=== PATIENT | female | born 1955 | race Caucasian/White ===

== ENCOUNTER 2020-07-15 18:16 | Emergency (ER) | payer MEDICARE, OTHER ==
[~2020-07-15] VITALS: Ht 162.6 cm; Wt 72.7 kg
[2020-07-15 18:26] VITALS: TEMP 97.9
[2020-07-15 19:14] VITALS: BP 107/66; PULSE 79
== END 2020-07-15 19:20 | disposition home or self-care (01) ==
LOC: COL.ER 18:16
DX: M54.16 Radiculopathy, lumbar region (principal); Z87.891 Personal history of nicotine dependence

== ENCOUNTER → 2020-07-15 | Emergency (ER) ==
[~2020-07-15] MED LIST: B-12 500 MCG PO; CEFTIN500 MG PO; CIPRO 500MG TA500 MG PO; COLACE 100100 MG/CAP PO; CYMBALTA 60MG60 MG PO; FLAGYL500 MG PO; FOLIC ACID 11 MG/TA1 PO; LYRICA 150MG C150 MG PO; MEDROL 4MG DOSPA4 MG PO; NORCO 325 MG-51 TAB PO; OXY IR5 MG PO; PERCOCET 325 MG1 TA2 PO; PYRIDIUM 100MG100 MG PO; ROXICODONE 55 MG/TAB PO; TIROSINT50 MC1 PO; TYLENOL 8 HR PO; VITAMIN D 400400 IU PO
== END ==
LOC: COL.ER 18:11
DX: R69 Illness, unspecified (principal)

== ENCOUNTER 2020-07-20 18:21 | Emergency (ER) | payer OTHER ==
[~2020-07-20] VITALS: Ht 162.6 cm; Wt 72.7 kg
[2020-07-20 18:31] VITALS: TEMP 98.7
[2020-07-20] MEDS ORDERED: MEDROL 4MG DOSPA4 MG PO ×2 (19:13)
[2020-07-20 19:42] VITALS: BP 138/84; PULSE 72
== END 2020-07-20 19:50 | disposition home or self-care (01) ==
LOC: COL.ER 18:21
DX: M54.16 Radiculopathy, lumbar region (principal); Z87.891 Personal history of nicotine dependence
CPT/HCPCS: J1885

== ENCOUNTER 2020-07-28 17:36 | Inpatient (IN) | payer MEDICARE, OTHER ==
[~2020-07-28] VITALS: Ht 162.6 cm; Wt 74.6 kg
[~2020-07-28 17:36] MED LIST changes: -B-12 500 MCG PO; -CEFTIN500 MG PO; -CIPRO 500MG TA500 MG PO; -COLACE 100100 MG/CAP PO; -CYMBALTA 60MG60 MG PO; -FLAGYL500 MG PO; -FOLIC ACID 11 MG/TA1 PO; -LYRICA 150MG C150 MG PO; -NORCO 325 MG-51 TAB PO; -OXY IR5 MG PO; -PERCOCET 325 MG1 TA2 PO; -PYRIDIUM 100MG100 MG PO; -ROXICODONE 55 MG/TAB PO; -TIROSINT50 MC1 PO; -TYLENOL 8 HR PO; -VITAMIN D 400400 IU PO
[2020-07-28 18:28] LABS: BASO # 0.1 (0.0-0.2); BASO % 0.9 % (0.0-2.0); EOS # 0.1 (0.0-0.7); EOS % 1.2 % (0-4.0); GRAN # 5.1 (1.4-6.5); GRAN % 57.4 % (42.2-75.2); HEMATOCRIT 47.1 % (37.0-47.0); HEMOGLOBIN 15.3 g/dl (12.5-16.0); LYMPH # 2.9 (1.2-3.4); LYMPH % 31.8 % (20.0-51.0); MEAN CELL VOLUME 94 fl (80.0-100.0); MEAN CORPUSCULAR HEMOGLOBIN 30 pg (27.0-31.0); MEAN CORPUSCULAR HGB CONC 33 g/dl (33.0-37.0); MEAN PLATELET VOLUME 10.1 fl (7.4-10.4); MONO # 0.8 (0.1-0.6); MONO % 8.6 % (1.7-9.3); PLATELET COUNT 353 K/mm3 (130-400); RED BLOOD COUNT 5.03 M/mm3 (4.10-5.30); REDCELL DISTRIBUTION WIDTH-CV 14.7 % (11.5-14.5)
[2020-07-28 19:15] LABS: ALBUMIN 4.3 gm/dL (3.5-5.0); BILIRUBIN,TOTAL 0.5 mg/dL (0.0-1.0); CREATININE, serum 0.91 (0.52-1.25); POTASSIUM 4.1 mmol/L (3.4-5.0); TOTAL PROTEIN 7.1 gm/dL (6.4-8.2)
[2020-07-28 19:28] LABS: MUCOUS Present /lpf; PH 6 (5-8); SQUAMOUS EPITHELIAL 20-50 /hpf; URINE APPEARANCE Turbid; URINE BACTERIA Rare /hpf; URINE BILIRUBIN Negative (NEGATIVE); URINE BLOOD 1+ (NEGATIVE); URINE COLOR Amber; URINE GLUCOSE Negative (NEGATIVE); URINE KETONE Negative (NEGATIVE); URINE LEUKOCYTE ESTERASE 3+ (NEGATIVE); URINE NITRATE Negative (NEGATIVE); URINE PROTEIN(semi-quant) 2+ (NEGATIVE); URINE UROBILINOGEN Negative (NEGATIVE); URINE WBC >50 /hpf
[2020-07-28 19:33] LABS: COLLECTION METHOD CLEAN CATCH
[2020-07-28] MEDS ORDERED: OXY IR5 MG PO (22:43)
[2020-07-28 22:49] VITALS: BP 127/61; PULSE 88; TEMP 97.5
--- NOTE | 2020-07-29 00:20 | NUR ---
Admitted to medical floor from ER- DX UTI, weakness,, was just discharged from [facility],, still having the severe weakness and is unable to walk-- neuros are intact, strong hand grasps etc, but has decreased sensation she states from her neck down, also has numbness/tingling hands/feet, very awkward in trying to hold a cup, when trying to stand , feet numb and cant move legs- but able to lift legs , arms in bed and push against resistance. Alert/oriented, very pleasant, requesting applesauce /water-- states having pain 8/10 to hips/legs-- was given roxicodone as ordered.
[2020-07-29 03:59] VITALS: BP 121/56; PULSE 70; TEMP 97.7
--- NOTE | 2020-07-29 06:00 | NUR ---
Was able to void a large amount urine per bedpan ,, VSS, was given roxicodone x2 during the night for hip and leg pain- Awake, talking on the phone
--- NOTE | 2020-07-29 08:30 | NUR ---
Shift assessment complete. Reports tingling/numbness from neck down. Noted to have difficulty with fine motor movements in hands. Spills drinks when attempting to put cup to mouth and is unable to place pills in mouth w/o assistance. A&Ox4. PERRLA, muscle strength weak but equal bilaterally, follows commands. Heart RRR. Lungs CTA. Denies other needs at this time.
[2020-07-29 09:13] VITALS: BP 125/81; PULSE 72; TEMP 97.7
[2020-07-29 14:17] VITALS: BP 145/64; PULSE 78; TEMP 97.8
--- NOTE | 2020-07-29 14:22 | NUR ---
Plan to return home in [place] with her and son Andrew . PCP Dr. Pham. Patient uses RX: [facility], Patient indicated to that she is non-mobile and uses wheelchair. Patient reports that she started with [facility]. Patient reports that her picks her up and moves. Patient indicated that she does not ambulate. Patient denies wanting use any retirement services. Patient reports that she would do homehealth care. Will continue to follow care.
[2020-07-29 16:48] VITALS: BP 106/47; PULSE 90; TEMP 98.5
--- NOTE | 2020-07-29 17:45 | NUR ---
Continues to have generalized weakness and intermittent tingling pain from neck down. Pain relieved by roxicodone, administered once this shift. Pt resting w/eyes closed for most of day w/o complaint.
--- NOTE | 2020-07-29 20:30 | NUR ---
Initial shift assessment done- states pain level a 4/10 at this time,,just had a pain med at shift change. VSS. Pt talkative, neuros intact, patient states her numbness/tingling is the same from the neck down. VSS. Dr. Dutton here to see patient tonight.
[2020-07-29 21:52] VITALS: BP 117/74; PULSE 83; TEMP 98.6
[2020-07-30] VITALS (7 sets, daily range): BP systolic 104–131; BP diastolic 52–87; PULSE 70–98; TEMP 97.2–98.4
--- NOTE | 2020-07-30 06:18 | NUR ---
Did not sleep much during the night-- states she still feels very numb 'all over",,using the bedpan during the night, voiding good amounts of urine. Getting her Roxicodone every 4 hours for overall pain.
--- NOTE | 2020-07-30 07:30 | NUR ---
Shift assessment complete. Reports numbness and tingling from neck down w/ pain at 4/10. Feels that motor control has worsened overnight. Unable to grasp items w/o dropping them. A&Ox4. Heart RRR. Lungs CTA. PERRLA, hand regional economic liaison/muscle strength weak but equal bilaterally. Right AC INT w/o s/s complication. Denies other needs. Continuing to monitor.
[2020-07-30 09:22] LABS: BASO # 0.1 (0.0-0.2); BASO % 1.1 % (0.0-2.0); EOS # 0.1 (0.0-0.7); EOS % 2.3 % (0-4.0); GRAN # 3.6 (1.4-6.5); GRAN % 58.4 % (42.2-75.2); HEMATOCRIT 40.9 % (37.0-47.0); HEMOGLOBIN 13.4 g/dl (12.5-16.0); LYMPH # 1.8 (1.2-3.4); LYMPH % 28.7 % (20.0-51.0); MEAN CELL VOLUME 92 fl (80.0-100.0); MEAN CORPUSCULAR HEMOGLOBIN 30 pg (27.0-31.0); MEAN CORPUSCULAR HGB CONC 33 g/dl (33.0-37.0); MEAN PLATELET VOLUME 9.5 fl (7.4-10.4); MONO # 0.6 (0.1-0.6); PLATELET COUNT 298 K/mm3 (130-400); RED BLOOD COUNT 4.44 M/mm3 (4.10-5.30); REDCELL DISTRIBUTION WIDTH-CV 14.4 % (11.5-14.5)
[2020-07-30 09:32] LABS: ALBUMIN 4.1 gm/dL (3.5-5.0); BILIRUBIN,TOTAL 0.5 mg/dL (0.0-1.0); CALCIUM 9.8 mg/dL (8.4-10.2); CREATININE, serum 0.9 (0.52-1.25); TOTAL PROTEIN 6.8 gm/dL (6.4-8.2)
--- NOTE | 2020-07-30 17:42 | NUR ---
Pt x2 assist to BSC at this time for small soft BM. Encouraged pt to perform ADLs as much as possible today, did fairly well with this. Roxicodone given x3 this shift w/adequate relief per pt report. VSS.
--- NOTE | 2020-07-30 18:37 | NUR ---
Pt reported pressure in pelvic region. Had a BM and urinated small amount and still felt pressure. Bladder scan done and found 842 ml. EDISON De La Cruz notified and ordered Olson. 18 Fr olson inserted with 675 ml output immediately. Urine continuing to drain slowly.
--- NOTE | 2020-07-30 20:00 | NUR ---
Assessment complete at this time. Patient is alert and oriented with no complaints of pain. She lifts all extremities and pushes against resisitance; Her hand account engineer are equal and strong but she does have some difficulty grasping her cup. Lung sounds are clear, HR normal/regular. Call light in reach, will continue to monitor.
[2020-07-31 04:07] VITALS: BP 116/59; PULSE 89; TEMP 97.6
[2020-07-31 06:52] LABS: BASO # 0.1 (0.0-0.2); BASO % 0.8 % (0.0-2.0); EOS # 0.2 (0.0-0.7); EOS % 2.7 % (0-4.0); GRAN # 3.3 (1.4-6.5); GRAN % 56.1 % (42.2-75.2); HEMATOCRIT 39.9 % (37.0-47.0); HEMOGLOBIN 13.3 g/dl (12.5-16.0); LYMPH # 1.8 (1.2-3.4); LYMPH % 29.9 % (20.0-51.0); MEAN CELL VOLUME 92 fl (80.0-100.0); MEAN CORPUSCULAR HEMOGLOBIN 31 pg (27.0-31.0); MEAN CORPUSCULAR HGB CONC 33 g/dl (33.0-37.0); MEAN PLATELET VOLUME 10.4 fl (7.4-10.4); MONO # 0.6 (0.1-0.6); MONO % 10.2 % (1.7-9.3); PLATELET COUNT 253 K/mm3 (130-400); RED BLOOD COUNT 4.34 M/mm3 (4.10-5.30); REDCELL DISTRIBUTION WIDTH-CV 14.5 % (11.5-14.5)
[2020-07-31 07:05] LABS: ALBUMIN 3.9 gm/dL (3.5-5.0); BILIRUBIN,TOTAL 0.7 mg/dL (0.0-1.0); CALCIUM 9.5 mg/dL (8.4-10.2); CREATININE, serum 0.9 (0.52-1.25); TOTAL PROTEIN 6.5 gm/dL (6.4-8.2)
[2020-07-31 08:32] VITALS: BP 116/58; PULSE 78; TEMP 97.9
[2020-07-31 11:22] VITALS: BP 121/63; PULSE 77; TEMP 97.9
--- NOTE | 2020-07-31 12:36 | NUR ---
First visit from the meter installer and remover. No needs right now.
--- NOTE | 2020-07-31 15:33 | NUR ---
PT/OT are recommending post-acute rehab/IPR. SW met with the patient to discuss their recommendation. The patient was agreeable to rehab and chose 1) [facility] 2) [facility]. SW consulted I[facility] Director. SW contacted and faxed a referral to Karla at [facility]. Awaiting screens.
[2020-07-31 16:50] VITALS: BP 130/80; PULSE 81; TEMP 97.6
--- NOTE | 2020-07-31 19:00 | NUR ---
PATIENT HAD UNEVENTFUL SHIFT. PATIENT GIVEN PRN PAIN MEDICATION AND REPOSITIONED WITH PILLOWS NEEDED THROUGHOUT THE DAY. BEDSIDE REPORT GIVEN TO NIGHT NURSE. PATIENT DENIES NEEDS AT THIS TIME.
--- NOTE | 2020-07-31 20:00 | NUR ---
Report received, assumed care for cnc machinist 2nd shift. Assessment complete. VS stable. A&Ox3. Denies pain/nausea/shortness of breath. Hand junk removal specialist equal bilat. Foot presses equal bilat. Able to lift both upper and lower extremities but having difficulty with coordination of hands. Romero cath with clear yellow urine. Plan of care discussed for this shift to inculde HS meds/pain meds/antibiotics/calling for questions/concerns. Verbalizes understanding/denies needs. Call light in reach. Will monitor.
[2020-07-31 20:45] VITALS: BP 116/55; PULSE 64; TEMP 98.1
--- NOTE | 2020-07-31 23:45 | NUR ---
Called with c/o pain to bilat hips. Rating pain 6/10 on pain scale described as constant ache. Oxycodone given per dr order. Will monitor.
[2020-08-01 00:24] VITALS: BP 107/62; PULSE 99; TEMP 98.1
[2020-08-01 03:28] VITALS: BP 120/72; PULSE 93; TEMP 97.6
--- NOTE | 2020-08-01 04:00 | NUR ---
Called with c/o pain to hips bilat. Rating pain 6/10 on pain scale-described as constant throbbing. Oxycodone given per dr order. Will monitor.
[2020-08-01 07:19] LABS: BASO % 0.2 % (0.0-2.0); GRAN # 3.8 (1.4-6.5); GRAN % 80.5 % (42.2-75.2); HEMATOCRIT 42.3 % (37.0-47.0); HEMOGLOBIN 14.4 g/dl (12.5-16.0); LYMPH # 0.8 (1.2-3.4); LYMPH % 17.8 % (20.0-51.0); MEAN CELL VOLUME 91 fl (80.0-100.0); MEAN CORPUSCULAR HEMOGLOBIN 31 pg (27.0-31.0); MEAN CORPUSCULAR HGB CONC 34 g/dl (33.0-37.0); MEAN PLATELET VOLUME 10.4 fl (7.4-10.4); MONO # 0.1 (0.1-0.6); MONO % 1.1 % (1.7-9.3); PLATELET COUNT 326 K/mm3 (130-400); RED BLOOD COUNT 4.66 M/mm3 (4.10-5.30); REDCELL DISTRIBUTION WIDTH-CV 13.9 % (11.5-14.5)
[2020-08-01 07:26] LABS: CALCIUM 10.1 mg/dL (8.4-10.2); CREATININE, serum 0.83 (0.52-1.25); POTASSIUM 4.1 mmol/L (3.4-5.0)
--- NOTE | 2020-08-01 07:30 | NUR ---
assessment as charted. Pt. resting in bed. HR reg AP 85bpm. Pain rated 1/10 At rest. INT in upper RT arm intact/no redness. Assist patient to chair w/PT, tolrated activity well.
[2020-08-01 07:31] VITALS: BP 113/72; PULSE 104; TEMP 98.7
--- NOTE | 2020-08-01 09:03 | NUR ---
Assessment complete. Patient sitting up in recliner after working with PT. She is in good spirits at this time and was plesant on assessment. No complaints of pain or discomfort at this time. Neuro assessment was unremarkable as patients extremities are strong on assessment as well as equal hand graps. Pt took PO meds well with no issues. Will continue to monitor. Call light is in reach. Fall precautions are in place.
[2020-08-01 09:39] LABS: LYME DISEASE ANTIBODIES Negative (Negative)
[2020-08-01 11:30] VITALS: BP 103/78; PULSE 106
--- NOTE | 2020-08-01 15:51 | NUR ---
The patient was started on IV decadron today. She may be able to d/c tomorrow. SW contacted and updated the patient's , Otilio (ph#[phone]). He is agreeable to rehab at [facility] or [facility].
[2020-08-01 16:38] VITALS: BP 105/56; PULSE 84; TEMP 97.9
--- NOTE | 2020-08-01 16:41 | NUR ---
Patient has had a good shift. She spent some time in the recliner after working with PT. Minimal needs through the day. Pt reports minor headache at this time, scheduled tylenol to be provided as patietn denied the need for anything stronger stating "I dont want to be drugged up", pt agreed to tylenol. No other needs were expressed at this time. Continuing to monitor. Call light is in reach. Fall precautions are in place.
[2020-08-01 19:48] LABS: CADMIUM BLOOD <0.2 ng/mL (<5.0); MERCURY,SERUM <1 ng/mL (<10)
[2020-08-01 20:12] VITALS: BP 111/61; PULSE 86; TEMP 98.1
--- NOTE | 2020-08-01 20:30 | NUR ---
Initial shift assessment done- denies pain at this time, states headache is resolved, pt up to BSC with 2 assists- did have bowel movement,, states still has numbness, tingling from about neck down-- states it about the same-not any worse. Romero to DD with cleqr yellow urine.
[2020-08-02 00:14] VITALS: BP 127/67; PULSE 84; TEMP 97.7
[2020-08-02 04:43] VITALS: BP 131/77; PULSE 83; TEMP 97.5
--- NOTE | 2020-08-02 06:04 | NUR ---
Quiet night- did get a few hours of sleep- this morning states she feels more numbness and tingling to arms and hands, continues to do her arm and hand exercises per therapy--VSS, continues with the IV decadron as ordered.
[2020-08-02 08:53] VITALS: BP 109/57; PULSE 91; TEMP 97.7
--- NOTE | 2020-08-02 09:16 | NUR ---
Coat Checker attended clinical rounds with the team. The patient's was present. Hospitalist will attempt to transfer to for further care.
[2020-08-02 11:23] VITALS: BP 124/73; PULSE 82; TEMP 97.4
--- NOTE | 2020-08-02 14:36 | NUR ---
[facility] has declined the patient. PA to staff with Dr. Dutton regarding denial for transfer.
--- NOTE | 2020-08-02 14:54 | NUR ---
Area Manager updated Idania, [facility] Director and faxed updates to Karla at [facility].
[2020-08-02 16:48] VITALS: BP 111/71; PULSE 81; TEMP 98.1
[2020-08-02 18:58] VITALS: BP 121/71; PULSE 95; TEMP 97.7
--- NOTE | 2020-08-02 19:30 | NUR ---
Patient assessed at this time. Alert and oriented, and able to make needs known. Denies having pain and discomfort at this time. Peripheral INT to right AC flushed. Site without redness, warmth, pain and swelling. Denies having SOB and dyspnea. LS CTA. Respirations even and unlabored. HRR. Capillary refill less than 3 seconds. Non-tenting skin turgor. BSAx4. Abdomen soft and non-tender. No edema. Indwelling olson catheter in place, with yellow urine with sediment present. Continues to have weakness in BUE and BLE, as well as "numbness" all over. Resting in bed with call light within reach. High fall risk precautions in place. Voices no questions, needs, or concerns at this time.
[2020-08-03 00:01] VITALS: BP 119/69; PULSE 69; TEMP 98.3
[2020-08-03 04:38] VITALS: BP 120/70; PULSE 72; TEMP 95
--- NOTE | 2020-08-03 05:57 | NUR ---
Patient has been resting in bed with call light within reach. Given scheduled APAP per orders during the night. Voices no questions, needs, or concerns at this time. Resting in bed with call light within reach.
[2020-08-03 06:54] LABS: BASO % 0.1 % (0.0-2.0); GRAN # 11.2 (1.4-6.5); GRAN % 86.8 % (42.2-75.2); HEMATOCRIT 41.6 % (37.0-47.0); HEMOGLOBIN 13.5 g/dl (12.5-16.0); LYMPH # 1.1 (1.2-3.4); LYMPH % 8.6 % (20.0-51.0); MEAN CELL VOLUME 95 fl (80.0-100.0); MEAN CORPUSCULAR HEMOGLOBIN 31 pg (27.0-31.0); MEAN CORPUSCULAR HGB CONC 33 g/dl (33.0-37.0); MEAN PLATELET VOLUME 10.6 fl (7.4-10.4); MONO # 0.5 (0.1-0.6); MONO % 3.9 % (1.7-9.3); PLATELET COUNT 353 K/mm3 (130-400); RED BLOOD COUNT 4.38 M/mm3 (4.10-5.30); REDCELL DISTRIBUTION WIDTH-CV 14.7 % (11.5-14.5)
[2020-08-03 07:13] LABS: CALCIUM 9.6 mg/dL (8.4-10.2); CREATININE, serum 0.77 (0.52-1.25); POTASSIUM 4.3 mmol/L (3.4-5.0)
[2020-08-03 07:16] VITALS: BP 135/65; PULSE 71; TEMP 98.3
--- NOTE | 2020-08-03 09:33 | NUR ---
PHYSICAIN ROUNDS COMPLETE. POSSIBLE TRANSFER TO HIGHER LEVEL OF CARE TO [place]. PT CONTINUES TO REPORT INCREASING NUMBNESS TO BILATERAL FEET AND HANDS. PT EATING AND DRINKING WITH NO DEFICITS NOTED.
--- NOTE | 2020-08-03 11:56 | NUR ---
The patient is to transfer to a [facility] today, 08/03. No additional needs at this time.
--- NOTE | 2020-08-03 13:02 | NUR ---
REPORT TO ELICEO CHRISTINA. PT LEFT VIA [facility].
[2020-08-17 07:39] LABS: IGG ASIALO GM1 XXX; IGG DISIALO GD1b XXX; IGG MONOSIALO GM1 XXX; IGM ASIALO GM1 XXX; IGM DISIALO GD1b XXX
== END 2020-08-03 13:06 | disposition short-term general hospital (02) | DRG 98 ==
LOC: COL.ER 17:36 → MEDICAL 20:04
PROVIDERS: Emergency Medicine; Family Medicine; Physician Assistant; Psychiatry & Neurology Neurology; ADMIT Student in an Organized Health Care Education/Training Program
DX: G37.3 Acute transverse myelitis in demyelinating disease of central nervous system (principal); N39.0 Urinary tract infection, site not specified; E78.5 Hyperlipidemia, unspecified; B19.20 Unspecified viral hepatitis C without hepatic coma; R27.0 Ataxia, unspecified; Z66 Do not resuscitate; Z87.891 Personal history of nicotine dependence; Z20.822 Contact with and (suspected) exposure to COVID-19
CPT/HCPCS: 99223-AI; 99231-AI; 99232-AI; 99233-AI; 99239; J0696; J1100; J1650

== ENCOUNTER 2021-01-07 06:36 | Emergency (ER) | payer MEDICARE, OTHER ==
[~2021-01-07] VITALS: Ht 162.6 cm; Wt 77.3 kg
[~2021-01-07 06:36] MED LIST changes: +OXY IR5 MG PO
[2021-01-07 06:45] VITALS: TEMP 98.1
[2021-01-07] MEDS ORDERED: PYRIDIUM 100MG100 MG PO (07:28)
[2021-01-07 08:05] VITALS: BP 128/80; PULSE 80
[2021-01-07 08:23] LABS: MUCOUS Present /lpf; PH 5 (5-8); URINE APPEARANCE Cloudy; URINE BACTERIA Rare /hpf; URINE BILIRUBIN Negative (NEGATIVE); URINE BLOOD 2+ (NEGATIVE); URINE COLOR Yellow; URINE GLUCOSE Negative (NEGATIVE); URINE KETONE Negative (NEGATIVE); URINE LEUKOCYTE ESTERASE 3+ (NEGATIVE); URINE NITRATE Negative (NEGATIVE); URINE PROTEIN(semi-quant) 1+ (NEGATIVE); URINE RBC >50 /hpf; URINE UROBILINOGEN Negative (NEGATIVE)
[2021-01-07] MEDS ORDERED: CEFTIN500 MG PO (12:03)
[2021-01-08 10:29] LABS: COLLECTION METHOD CATHETER
== END 2021-01-07 08:08 | disposition home or self-care (01) ==
LOC: COL.ER 06:36
PROVIDERS: Emergency Medicine
DX: T83.091A Other mechanical complication of indwelling urethral catheter, initial encounter (principal)

== ENCOUNTER → 2021-01-16 | Outpatient (CLI) | payer MEDICARE, OTHER ==
[~2021-01-16] MED LIST changes: +B-12 500 MCG PO; +CEFTIN500 MG PO; +CIPRO 500MG TA500 MG PO; +COLACE 100100 MG/CAP PO; +CYMBALTA 60MG60 MG PO; +FLAGYL500 MG PO; +FOLIC ACID 11 MG/TA1 PO; +LYRICA 150MG C150 MG PO; +NORCO 325 MG-51 TAB PO; +PERCOCET 325 MG1 TA2 PO; +PYRIDIUM 100MG100 MG PO; +ROXICODONE 55 MG/TAB PO; +TIROSINT50 MC1 PO; +TYLENOL 8 HR PO; +VITAMIN D 400400 IU PO
== END ==
LOC: SDCO 01-09 09:00 → EDSTATUS 09:00 → ZCOL.LAB 12:00 → SDCO 16:30
DX: R39.14 Feeling of incomplete bladder emptying (principal); Z20.822 Contact with and (suspected) exposure to COVID-19
CPT/HCPCS: J0690; J1100; J2405; J2704; J3010

== ENCOUNTER 2021-01-23 12:45 | Day surgery (SDC) | payer MEDICARE, OTHER ==
[~2021-01-23] VITALS: Ht 162.6 cm; Wt 75.5 kg
[~2021-01-23 12:45] MED LIST changes: -B-12 500 MCG PO; -CIPRO 500MG TA500 MG PO; -COLACE 100100 MG/CAP PO; -CYMBALTA 60MG60 MG PO; -FLAGYL500 MG PO; -FOLIC ACID 11 MG/TA1 PO; -LYRICA 150MG C150 MG PO; -NORCO 325 MG-51 TAB PO; -PERCOCET 325 MG1 TA2 PO; -ROXICODONE 55 MG/TAB PO; -TIROSINT50 MC1 PO; -TYLENOL 8 HR PO; -VITAMIN D 400400 IU PO
[2021-01-23 13:54] VITALS: BP 118/75; PULSE 80; TEMP 97.5
[2021-01-23] MEDS ORDERED: LYRICA 150MG C150 MG PO (14:13)
[2021-01-23] MEDS ORDERED: CYMBALTA 60MG60 MG PO (14:14)
[2021-01-23] MEDS ORDERED: TIROSINT50 MC1 PO (14:14)
[2021-01-23] MEDS ORDERED: COLACE 100100 MG/CAP PO (14:15)
[2021-01-23] MEDS ORDERED: FOLIC ACID 11 MG/TA1 PO (14:15)
[2021-01-23] MEDS ORDERED: B-12 500 MCG PO (14:16)
[2021-01-23] MEDS ORDERED: VITAMIN D 400400 IU PO (14:17)
[2021-01-23] MEDS ORDERED: ROXICODONE 55 MG/TAB PO (14:17)
[2021-01-23] MEDS ORDERED: TYLENOL 8 HR PO (14:40)
[2021-01-23 15:45] VITALS: BP 116/49; PULSE 81; TEMP 97.1
--- NOTE | 2021-01-23 15:45 | NUR ---
PATIENT TRANSPORTED PER CART FROM OR TO BAY 1 ACCOMPANIED BY OR STAFF. PATIENT TALKING WITH STAFF. MONITORS APPLIED. VSS ON ROOM AIR. IN ROOM. SUPRA PUBIC CATHETER IN PLACE WITH LEG IN PLACE. VERBAL REPORT RECEIVED. PATIENT GIVEN GRAPE JUICE TO DRINK.
[2021-01-23 16:00] VITALS: BP 105/49; PULSE 80
[2021-01-23 16:15] VITALS: BP 115/66; PULSE 78
--- NOTE | 2021-01-23 16:15 | NUR ---
VSS ON ROOM AIR. PATEINT DENIES DISCOMFORT AND NAUSEA. TALKING WITH . TOLERATES JUICE WITHOUT PROBLEMS. PATIENT GIVEN MUFFIN TO EAT.
[2021-01-23 16:30] VITALS: BP 103/43; PULSE 77
--- NOTE | 2021-01-23 16:35 | NUR ---
BLOOD PRESSURE 103/49 PATIENT DENIES LIGHTHEADED AND DIZZINESS.FEELS FINE. PATIENT TOLERATES FOOD WITHOUT PROBLEMS. AND PATIENT. 163 IV DC'D WITH CATHETER TIP INTACT. PRESSURE AND BANDAGE APPLIED. DISCHARGE INSTRUCTIONS GIVEN VERBAL AND DISCHARGE PACKET PROVIDED. PATIENT GIVEN EXTRA SUPPLIES. PATIENT AND VERBALIZED UNDERSTANDING. PATIENT ASSISTED WITH CHANGING INTO STREET CLOTHES AND ASSISTED WITH TRANSFER TO HER CHAIR. 1650 PATIENT TRANSPORTED SELF IN HER MOTORIZED WHEEL CHAIR TO [facility].
--- NOTE | 2021-01-23 16:40 | NUR ---
LEG BAG IN PLACE WITH APROX 100CC URINE.
== END 2021-01-23 16:50 | disposition home or self-care (01) ==
LOC: SDCO 12:45
DX: N31.9 Neuromuscular dysfunction of bladder, unspecified (principal); G62.9 Polyneuropathy, unspecified; M19.90 Unspecified osteoarthritis, unspecified site; Z87.891 Personal history of nicotine dependence; Z99.3 Dependence on wheelchair; Z79.899 Other long term (current) drug therapy; Z79.891 Long term (current) use of opiate analgesic
CPT/HCPCS: C1769; J2704; J3010; J7120

== ENCOUNTER 2021-02-13 10:39 | Emergency (ER) | payer MEDICARE, OTHER ==
[~2021-02-13] VITALS: Ht 162.6 cm; Wt 75.5 kg
[~2021-02-13 10:39] MED LIST changes: +B-12 500 MCG PO; +COLACE 100100 MG/CAP PO; +CYMBALTA 60MG60 MG PO; +FOLIC ACID 11 MG/TA1 PO; +LYRICA 150MG C150 MG PO; +ROXICODONE 55 MG/TAB PO; +TIROSINT50 MC1 PO; +TYLENOL 8 HR PO; +VITAMIN D 400400 IU PO
[2021-02-13 10:50] VITALS: TEMP 98.3
[2021-02-13 11:27] LABS: COLLECTION METHOD CATHETER
[2021-02-13 11:29] LABS: BASO # 0.1 (0.0-0.2); BASO % 0.4 % (0.0-2.0); EOS # 0.1 (0.0-0.7); EOS % 0.4 % (0-4.0); GRAN # 14.3 (1.4-6.5); GRAN % 82.2 % (42.2-75.2); HEMATOCRIT 37.7 % (37.0-47.0); HEMOGLOBIN 12.8 g/dl (12.5-16.0); LYMPH # 1.6 (1.2-3.4); LYMPH % 9.2 % (20.0-51.0); MEAN CELL VOLUME 92 fl (80.0-100.0); MEAN CORPUSCULAR HEMOGLOBIN 31 pg (27.0-31.0); MEAN CORPUSCULAR HGB CONC 34 g/dl (33.0-37.0); MEAN PLATELET VOLUME 9.5 fl (7.4-10.4); MONO # 1.3 (0.1-0.6); MONO % 7.2 % (1.7-9.3); PLATELET COUNT 306 K/mm3 (130-400); RED BLOOD COUNT 4.11 M/mm3 (4.10-5.30); REDCELL DISTRIBUTION WIDTH-CV 12.9 % (11.5-14.5)
[2021-02-13 11:34] LABS: MUCOUS Present /lpf; PH 5 (5-8); URINE APPEARANCE Cloudy; URINE BACTERIA Rare /hpf; URINE BILIRUBIN Negative (NEGATIVE); URINE BLOOD 2+ (NEGATIVE); URINE COLOR Yellow; URINE GLUCOSE 1+ (NEGATIVE); URINE KETONE Negative (NEGATIVE); URINE LEUKOCYTE ESTERASE Negative (NEGATIVE); URINE NITRATE Negative (NEGATIVE); URINE PROTEIN(semi-quant) 1+ (NEGATIVE); URINE RBC 0-2 /hpf; URINE UROBILINOGEN Negative (NEGATIVE)
[2021-02-13 11:47] LABS: BILIRUBIN,TOTAL 0.9 mg/dL (0.0-1.0); CALCIUM 9.3 mg/dL (8.4-10.2); CREATININE, serum 0.57 (0.52-1.25)
[2021-02-13 12:00] LABS: C-REACTIVE PROTEIN 13.5 mg/dL (0.0-0.9)
[2021-02-13] MEDS ORDERED: PERCOCET 325 MG1 TA2 PO (14:35)
[2021-02-13] MEDS ORDERED: FLAGYL500 MG PO (14:35)
[2021-02-13] MEDS ORDERED: CIPRO 500MG TA500 MG PO (14:35)
[2021-02-13 15:14] VITALS: BP 106/72; PULSE 78
== END 2021-02-13 15:16 | disposition home or self-care (01) ==
LOC: COL.ER 10:39
PROVIDERS: Emergency Medicine
DX: S32.030A Wedge compression fracture of third lumbar vertebra, initial encounter for closed fracture (principal); K62.89 Other specified diseases of anus and rectum; W05.0XXA Fall from non-moving wheelchair, initial encounter
CPT/HCPCS: J2270; J2405; J7030; Q9967

== ENCOUNTER 2021-02-15 09:52 | Emergency (ER) | payer MEDICARE, OTHER ==
[~2021-02-15 09:52] MED LIST changes: +CIPRO 500MG TA500 MG PO; +FLAGYL500 MG PO; +PERCOCET 325 MG1 TA2 PO
[2021-02-15 09:56] VITALS: TEMP 99.1
[2021-02-15 13:55] VITALS: BP 124/97; PULSE 85
--- NOTE | 2021-02-15 14:02 | NUR ---
Wool Presser responded to consult in ED for patient who is interested in Home Health services. SW collaborated with the ED provider who advised patient has a previous L4 compression fracture and after a fall on Friday, a new L3 compression fracture. ED provider advised patient has had difficulty with ADLS and mobility due to pain. KOLTON met with patient and her , Otilio who is at bedside. Patient sees Elidia Barnes NP at [facility] for primary care. Patient reports she has a walker, electric wheelchair, manual wheelchair, flro lift, and hospital bed at home. Patient's , Otilio provides assistance with ADLS and patient advised that she has strong support from her methodist worship. Patient states outpatient PT was going well and she was able to start walking with a walker until her most recent fall, which happened when she was walking into an appointment. Patient has had HH services in the past and feels she would benefit from them again as it is difficult to get to outpatient appointments after her most recent fall. Patient had [facility] in the past and would like to use them again. Patient will discharge home today by private car. Patient's Otilio advised he drove the car today but they also have a wheelchair accessible van. KOLTON collaborated with ED provider to obtain face to face certification for HH services. KOLTON contacted Oumou at [facility] and faxed referral with face to face orders. KOLTON received a follow up call from Homa at [facility] who advised they can accept patient and that they will collaborate with patient's primary care provider, Debora Barnes to obtain any further orders.
== END 2021-02-15 13:55 | disposition home or self-care (01) ==
LOC: COL.ER 09:52
DX: S32.039A Unspecified fracture of third lumbar vertebra, initial encounter for closed fracture (principal); X58.XXXA Exposure to other specified factors, initial encounter
CPT/HCPCS: J2270

== ENCOUNTER 2021-04-03 17:12 | Emergency (ER) | payer MEDICARE, OTHER ==
[~2021-04-03] VITALS: Ht 162.6 cm; Wt 77.3 kg
[2021-04-03 18:27] VITALS: TEMP 97.2
[2021-04-03] MEDS ORDERED: NORCO 325 MG-51 TAB PO (21:42)
[2021-04-03 21:55] VITALS: BP 136/78; PULSE 72
== END 2021-04-03 21:55 | disposition home or self-care (01) ==
LOC: COL.ER 17:12
DX: S32.019A Unspecified fracture of first lumbar vertebra, initial encounter for closed fracture (principal); X58.XXXA Exposure to other specified factors, initial encounter

== ENCOUNTER → 2021-07-06 | Outpatient (CLI) | payer MEDICARE, OTHER ==
[~2021-07-06] MED LIST changes: +NORCO 325 MG-51 TAB PO
== END ==
LOC: COL.RAD 11:12
DX: M47.816 Spondylosis without myelopathy or radiculopathy, lumbar region (principal); G95.9 Disease of spinal cord, unspecified; S32.019A Unspecified fracture of first lumbar vertebra, initial encounter for closed fracture; S32.039A Unspecified fracture of third lumbar vertebra, initial encounter for closed fracture; S32.049A Unspecified fracture of fourth lumbar vertebra, initial encounter for closed fracture

== ENCOUNTER 2021-11-16 07:47 | Day surgery (SDC) | payer MEDICARE, OTHER ==
[~2021-11-16] VITALS: Ht 162.6 cm; Wt 80.5 kg
[2021-11-16] MEDS ORDERED: CALCIUM 600600 MG PO (08:26)
[2021-11-16] MEDS ORDERED: FORTEO250 MCG/ML SQ (08:27)
[2021-11-16 08:37] VITALS: BP 105/73; PULSE 94; TEMP 96.8
[2021-11-16 09:50] VITALS: BP 117/73; PULSE 80; TEMP 97.5
--- NOTE | 2021-11-16 09:50 | NUR ---
PATIENT ARRIVES TO ROOM 7 VIA CART. ASSIST TO CHAIR X 1. VITAL SIGNS WNL. AT BEDSIDE. WILL CONTINUE TO MONITOR.
[2021-11-16 10:05] VITALS: BP 112/72; PULSE 75
--- NOTE | 2021-11-16 10:05 | NUR ---
PATIENT IS ALERT AND ORIENTED. VITAL SIGNS WNL. DOCTOR AT BEDSIDE. IV REMOVED. WILL CONTINUE TO MONITOR.
[2021-11-16 10:19] VITALS: BP 104/87; PULSE 76
--- NOTE | 2021-11-16 10:19 | NUR ---
PATIENT IS READY FOR DISCHARGE. DISCHARGE INSTRUCTIONS REVIEWED. LAST SET OF VITAL SIGNS ARE WNL. SHE IS GETTING DRESSED AND I WILL TAKE HER DOWNSTAIRS SOON SHE IS READY.
== END 2021-11-16 10:20 | disposition home or self-care (01) ==
LOC: SDCO 07:47
DX: Z12.11 Encounter for screening for malignant neoplasm of colon (principal); D12.2 Benign neoplasm of ascending colon; K63.5 Polyp of colon; K57.30 Diverticulosis of large intestine without perforation or abscess without bleeding; Z80.0 Family history of malignant neoplasm of digestive organs
CPT/HCPCS: J2704; J7120